=== PATIENT | male | born 1970 | race Caucasian/White ===

== ENCOUNTER 2018-10-20 18:06 | Inpatient (IN) | payer OTHER ==
[2018-10-21 03:50] VITALS: BMI 32.2
--- NOTE | 2018-10-21 03:50 | HP ---
CIWA Score Nausea/Vomitin-Mild Nausea/No Vomiting Muscle Tremors: 4-Moderate,w/Arms Extend Anxiety: 3 Agitation: 3 Paroxysmal Sweats: 3 Orientation: 0-Oriented Tacttile Disturbances: 1-Very Mild Itch/Numbness Auditory Disturbances: 0-None Visual Disturbances: 0-None Headache: 3-Moderate CIWA-Ar Total Score: 18 - Admission Criteria OASAS Guidelines: Admission for Medically Managed Detox: Requires at least one of the followin. CIWA greater than 12 2. Seizures within the past 24 hours 3. Delirium tremens within the past 24 hours 4. Hallucinations within the past 24 hours 5. Acute intervention needed for co occurring medical disorder 6. Acute intervention needed for co occurring psychiatric disorder 7. Severe withdrawal that cannot be handled at a lower level of care (continued vomiting, continued diarrhea, abnormal vital signs) requiring intravenous medication and/or fluids 8. Admission ROS [facility] Chief Complaint: Alcohol withdrawal symptoms Allergies/Adverse Reactions: Allergies Allergy/AdvReac Type Severity Reaction Status Date / Time No Known Allergies Allergy Verified 10/21/18 03:50 History of Present Illness: 48 years old with a long history of alcohol dependence is seeking admission to detox. [place] previous [place] [facility] [place] has history of Hep. C, anxiety and depression. He denies suicidal ideation at this time. He is on Methadone 90mg tablet oral daily with HELP MMTP. Last dose medicated was 10/20/2018. Dose is yet to be verified by the nurse. Exam Limitations: No Limitations - Ebola screening Have you traveled outside of the country in the last 21 days: No (N) Have you had contact with anyone from an Ebola affected area: No Do you have a fever: No - Review of Systems Constitutional: Chills, Loss of Appetite, Night Sweats, Weakness EENT: reports: No Symptoms Reported, Sinus Pressure Respiratory: reports: No Symptoms reported Cardiac: reports: No Symptoms Reported GI: reports: Diarrhea (x 2), Poor Appetite, Poor Fluid Intake, Vomiting, Abdominal cramping : reports: No Symptoms Reported Musculoskeletal: reports: Back Pain, Muscle Pain Integumentary: reports: Dryness, Flushing Neuro: reports: Headache, Tremors Endocrine: reports: No Symptoms Reported Hematology: reports: No Symptoms Reported Psychiatric: reports: Mood/Affect Appropiate, Orientated x3 Other Systems: Reviewed and Negative Patient History - Patient Medical History Hx Anemia: No Hx Asthma: No Hx Chronic Obstructive Pulmonary Disease (COPD): No Hx Cancer: No Hx Cardiac Disorders: No Hx Congestive Heart Failure: No Hx Hypertension: No Hx Hypercholesterolemia: No Hx Pacemaker: No HX Cerebrovascular Accident: No Hx Seizures: No Hx Dementia: No Hx Diabetes: No Hx Liver Disease: Yes (HEP. C) Hx Genitourinary Disorders: No Hx Sexually Transmitted Disorders: No Hx Renal Disease (ESRD): No Hx Thyroid Disease: No Hx Human Immunodeficiency Virus (HIV): No Hx Hepatitis C: Yes (NOT ON MEDICATION) Hx Depression: Yes (XANAX) Hx Suicide Attempt: No (DENIES SUICIDAL IDEATION AT THIS TIME) Hx Bipolar Disorder: No Hx Schizophrenia: No - Patient Surgical History Past Surgical History: No - PPD History Previous Implant?: Yes Documented Results: Negative w/o proof Implanted On Prior [facility] Admission?: No PPD to be Administered?: Yes - Reproductive History Patient is a Female of Child Bearing Age (11 -55 yrs old): No (MALE) - Smoking Cessation Smoking history: Current every day smoker Have you smoked in the past 12 months: Yes Aproximately how many cigarettes per day: 10 Hx Chewing Tobacco Use: No Initiated information on smoking cessation: Yes 'Breaking Loose' booklet given: 10/20/18 - Substance & Tx. History Hx Alcohol Use: Yes Hx Substance Use: Yes Substance Use Type: Alcohol, Prescribed Hx Substance Use Treatment: Yes ([facility] [place] - Substances abused Alcohol Substance route: Oral Frequency: Daily Amount used: PINT OF [place]ODKA, 2 X 40 OZ. BEER Age of first use: 14 Date of last use: 10/20/18 Family Disease History - Family Disease History Family Disease History: Diabetes: Mother () Admission Physical Exam [facility] - Physical General Appearance: Yes: Moderate Distress, Tremorous, Sweating, Anxious HEENTM: Yes: Within Normal Limits Respiratory: Yes: Lungs Clear, Normal Breath Sounds, No Respiratory Distress Neck: Yes: Supple Breast: Yes: Breast Exam Deferred Cardiology: Yes: Regular Rhythm, Regular Rate Abdominal: Yes: Normal Bowel Sounds Genitourinary: Yes: Within Normal Limits Back: Yes: Normal Inspection Musculoskeletal: Yes: Back pain, Muscle Pain Extremities: Yes: Tremors Neurological: Yes: Respond to painful stimul Integumentary: Yes: Warm Lymphatic: Yes: Within Normal Limits - Diagnostic (1) Alcohol dependence with uncomplicated withdrawal Current Visit: Yes Status: Chronic (2) Nicotine dependence Current Visit: Yes Status: Chronic Qualifiers: Nicotine product type: cigarettes Substance use status: uncomplicated Qualified Code(s): F17.210 - Nicotine dependence, cigarettes, uncomplicated (3) Hep C w/o coma, chronic Current Visit: Yes Status: Chronic (4) Depression Current Visit: Yes Status: Chronic Qualifiers: Depression Type: unspecified Qualified Code(s): F32.9 - Major depressive disorder, single episode, unspecified (5) Anxiety Current Visit: Yes Status: Acute Cleared for Admission S - Detox or Rehab [facility] Level of Care: Medically Managed Detox Regimen/Protocol: Librium Breathalyzer - Breathalyzer Breathalyzer: 0 Vital Signs - Vital Signs Vital signs refused: No Temperature: 97.0 F Pulse Rate: 63 Respiratory Rate: 18 Blood Pressure: 105/62 BP Location: Left Arm - Height Height: 5 ft 8 in - Weight Weight: 212 lb Weight measurement method: Standing scale - BMI Body Mass Index (BMI): 32.2 - Bowel Function Bowel Movement: Yes Urine Drug Screen - Test Device Lot number: [id number] Expiration date: 07/02/20 - Control Is test valid?: Yes - Results Drug screen NEGATIVE: No Urine drug screen results: MOP-Opiates, MTD-Methadone Inpatient Rehab Admission - Rehab Decision to Admit Inpatient rehab admission?: No
[2018-10-21] MEDS ORDERED: ACETAMINOPHEN 325 MG TABLET (FP) PO PRN ×2 (04:23)
[2018-10-21] MEDS ORDERED: chlordiazePOXIDE HCL 25 MG CAPSULE PO PRN (04:23)
[2018-10-21] MEDS ORDERED: MELATONIN 5 MG TABLETS PO PRN ×2 (04:23→11:23)
[2018-10-21] MEDS ORDERED: MAGNESIUM CITRATE 300 ML BOTTLE PO PRN (04:23)
[2018-10-21] MEDS ORDERED: BISMUTH SUBSALICYLATE 524 MG/30 ML UD PO PRN (04:23)
[2018-10-21] MEDS ORDERED: IBUPROFEN 400 MG TABLET (FP) PO PRN (04:23)
[2018-10-21] MEDS ORDERED: MAG HYDROX/AL HYDROX/SIMETH 30 ML UNIT-DOSE CUP PO PRN (04:23)
[2018-10-21] MEDS ORDERED: MENTHOL/PHENOL 1 EACH UD MM PRN (04:23)
[2018-10-21] MEDS ORDERED: METHOCARBAMOL 500 MG TABLET PO PRN (04:23)
[2018-10-21] MEDS ORDERED: hydrOXYzine PAMOATE 25 MG CAPSULE (FP) PO PRN (04:23)
[2018-10-21] MEDS ORDERED: MAGNESIUM HYDROX 2400MG/30ML ORAL SUSPENSION 30 ML CUP PO PRN (04:23)
[2018-10-21] MEDS: chlordiazePOXIDE HCL 25 MG CAPSULE PO SCH ×4 (05:33→22:06)
[2018-10-21] MEDS ORDERED: METHADONE HCL 10 MG TABLET PO ONE (08:51)
[2018-10-21] MEDS ORDERED: METHADONE 80 MG, METHADONE 10 MG PO ONE (09:00)
[2018-10-21] MEDS ORDERED: METHADONE HCL 10 MG TABLET ONE (09:35)
[2018-10-21] MEDS ORDERED: METHADONE HCL 40 MG DISPERSABLE TABLET ONE (09:35)
[2018-10-21] MEDS: PRENATAL VITAMINS W/ FOLIC ACID TABLET (FP) PO SCH (10:34)
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
--- NOTE | 2018-10-21 15:06 | PN ---
S CIWA - CIWA Score Nausea/Vomitin-Mild Nausea/No Vomiting Muscle Tremors: 2 Anxiety: 1-Mildly Anxious Agitation: 1-Slight > Activity Paroxysmal Sweats: 1-Minimal Palms Moist Orientation: 0-Oriented Tacttile Disturbances: 0-None Auditory Disturbances: 0-None Visual Disturbances: 0-None Headache: 1-Very Mild CIWA-Ar Total Score: 7 [facility] Progress Note (SOAP) Subjective: pt admitted early this morning for alcohol detox- doing well O: Vital Signs - 24 hr 10/21/18 10/21/18 10/21/18 06:35 08:06 11:24 Temperature 97.0 F L 97.5 F L 97.5 F L Pulse Rate 63 55 L 67 Respiratory 18 18 17 Rate Blood Pressure 105/62 114/67 105/57 L a/p: continue alcohol detox protocol- pt seems to be doing better
[2018-10-21] MEDS: THIAMINE HCL 100 MG TABLET (FP) PO SCH (22:06)
[2018-10-22] MEDS ORDERED: chlordiazePOXIDE HCL 25 MG CAPSULE PO SCH (05:00)
[2018-10-22] MEDS ORDERED: METHADONE HCL 40 MG DISPERSABLE TABLET ONE (05:38)
[2018-10-22] MEDS ORDERED: METHADONE HCL 10 MG TABLET ONE (05:38)
[2018-10-22] MEDS: METHADONE 80 MG, METHADONE 10 MG PO SCH (05:47)
[2018-10-22] MEDS ORDERED: METHADONE HCL 40 MG DISPERSABLE TABLET PO SCH (06:00)
--- NOTE | 2018-10-22 09:13 | PN ---
[facility] CIWA - CIWA Score Nausea/Vomitin Muscle Tremors: 2 Anxiety: 2 Agitation: 2 Paroxysmal Sweats: 1-Minimal Palms Moist Orientation: 0-Oriented Tacttile Disturbances: 1-Very Mild Itch/Numbness Auditory Disturbances: 1-Very Mild Visual Disturbances: 0-None Headache: 2-Mild CIWA-Ar Total Score: 13 [facility] Progress Note (SOAP) Subjective: alert,irritable,anxious,interrupted sleep,tremor,pain in the body Objective: 10/22/18 09:12 Vital Signs Temperature 97.9 F 10/22/18 07:18 Pulse Rate 61 10/22/18 07:18 Respiratory Rate 18 10/22/18 07:18 Blood Pressure 107/62 10/22/18 07:18 O2 Sat by Pulse Oximetry (%) labs pending Assessment: 10/22/18 09:12 withdrawal symptom Plan: patient would like regimen to change fro librium to valium
[2018-10-22 09:40] LABS: HEMATOCRIT 41.6 % (35.4-49); HEMOGLOBIN 14.1 GM/dL (11.7-16.9); MCH 29.9 pg (25.7-33.7); MCHC 33.9 g/dl (32.0-35.9); MEAN CELL VOLUME 88.2 fl (80-96); MEAN PLT VOLUME 8.8 fl (7.5-11.1); PLATELET COUNT 94 K/MM3 (134-434); RBC 4.72 M/mm3 (4.00-5.60); RDW 13.4 % (11.9-15.9); WHITE BLOOD COUNT 4.3 K/mm3 (4.0-10.0)
[2018-10-22] MEDS: PRENATAL VITAMINS W/ FOLIC ACID TABLET (FP) PO SCH (09:55)
[2018-10-22 09:56] LABS: ALBUMIN 3.1 g/dl (3.4-5.0); BILIRUBIN,TOTAL 0.4 mg/dL (0.2-1); BLOOD UREA NITROGEN 11.2 mg/dL (7-18); CALCIUM 8.3 mg/dL (8.5-10.1); CREATININE 0.6 mg/dL (0.55-1.3); POTASSIUM 4.2 mmol/L (3.5-5.1); TOT PROT 7.4 g/dl (6.4-8.2)
[2018-10-22] MEDS ORDERED: diazePAM 5 MG TABLET PO ONE (10:00)
[2018-10-22] MEDS: FLUOCINONIDE 0.05% TOP OINT (60 GM TUBE) TP SCH ×4 (10:59→22:21)
[2018-10-22] MEDS: diazePAM 5 MG TABLET PO SCH ×2 (15:00→22:20)
[2018-10-22] MEDS: THIAMINE HCL 100 MG TABLET (FP) PO SCH (22:19)
[2018-10-22] MEDS: diazePAM 5 MG TABLET PO PRN (22:19)
[2018-10-23] MEDS: diazePAM 5 MG TABLET PO PRN ×3 (02:44→19:01)
[2018-10-23] MEDS ORDERED: METHADONE HCL 10 MG TABLET ONE (04:14)
[2018-10-23] MEDS ORDERED: METHADONE HCL 40 MG DISPERSABLE TABLET ONE (04:14)
[2018-10-23] MEDS ORDERED: chlordiazePOXIDE HCL 10 MG CAPSULE PO SCH (05:00)
[2018-10-23] MEDS ORDERED: chlordiazePOXIDE HCL 10 MG CAPSULE PO PRN (05:00)
[2018-10-23] MEDS: METHADONE 80 MG, METHADONE 10 MG PO SCH (06:01)
[2018-10-23] MEDS: diazePAM 5 MG TABLET PO SCH ×3 (06:02→22:32)
--- NOTE | 2018-10-23 10:16 | PN ---
S CIWA - CIWA Score Nausea/Vomitin Muscle Tremors: 2 Anxiety: 2 Agitation: 2 Paroxysmal Sweats: No Perspiration Orientation: 0-Oriented Tacttile Disturbances: 1-Very Mild Itch/Numbness Auditory Disturbances: 0-None Visual Disturbances: 0-None Headache: 2-Mild CIWA-Ar Total Score: 11 S Progress Note (SOAP) Subjective: alert,irritable,anxious,interrupted sleep,pain in the right leg treated for cellulitis prior to coming for detox Objective: 10/23/18 10:12 Vital Signs Temperature 96.9 F L 10/23/18 10:04 Pulse Rate 78 10/23/18 10:04 Respiratory Rate 18 10/23/18 10:04 Blood Pressure 99/55 L 10/23/18 10:04 O2 Sat by Pulse Oximetry (%) 10/23/18 10:12 Laboratory Last Values WBC 4.3 K/mm3 (4.0-10.0) 10/22/18 07:30 RBC 4.72 M/mm3 (4.00-5.60) 10/22/18 07:30 Hgb 14.1 GM/dL (11.7-16.9) 10/22/18 07:30 Hct 41.6 % (35.4-49) 10/22/18 07:30 MCV 88.2 fl (80-96) 10/22/18 07:30 MCH 29.9 pg (25.7-33.7) 10/22/18 07:30 MCHC 33.9 g/dl (32.0-35.9) 10/22/18 07:30 RDW 13.4 % (11.9-15.9) 10/22/18 07:30 Plt Count 94 K/MM3 (134-434) L 10/22/18 07:30 MPV 8.8 fl (7.5-11.1) 10/22/18 07:30 Sodium 142 mmol/L (136-145) 10/22/18 07:30 Potassium 4.2 mmol/L (3.5-5.1) 10/22/18 07:30 Chloride 107 mmol/L (98-107) 10/22/18 07:30 Carbon Dioxide 29 mmol/L (21-32) 10/22/18 07:30 Anion Gap 5 MMOL/L (8-16) L 10/22/18 07:30 BUN 11.2 mg/dL (7-18) 10/22/18 07:30 Creatinine 0.6 mg/dL (0.55-1.3) 10/22/18 07:30 Est GFR (CKD-EPI)AfAm 139.75 10/22/18 07:30 Est GFR (CKD-EPI)NonAf 120.58 10/22/18 07:30 Random Glucose 81 mg/dL (74-106) 10/22/18 07:30 Calcium 8.3 mg/dL (8.5-10.1) L 10/22/18 07:30 Total Bilirubin 0.4 mg/dL (0.2-1) 10/22/18 07:30 AST 257 U/L (15-37) H 10/22/18 07:30 ALT 273 U/L (13-61) H 10/22/18 07:30 Alkaline Phosphatase 78 U/L (45-117) 10/22/18 07:30 Total Protein 7.4 g/dl (6.4-8.2) 10/22/18 07:30 Albumin 3.1 g/dl (3.4-5.0) L 10/22/18 07:30 RPR Titer Nonreactive (NONREACTIVE) 10/22/18 07:30 Assessment: 10/23/18 10:14 withdrawal symptom right leg slight redness resolving cellulitis of right leg Plan: continue detox,repeat alt,ast,inr in am for elevation of alt,ast,d/c tylenol, keflex 500 mgs po tid for 7days for resolving of cellulitis of right leg
[2018-10-23] MEDS: PRENATAL VITAMINS W/ FOLIC ACID TABLET (FP) PO SCH (10:23)
[2018-10-23] MEDS: FLUOCINONIDE 0.05% TOP OINT (60 GM TUBE) TP SCH ×4 (10:24→22:30)
[2018-10-23] MEDS: CEPHALEXIN MONOHYDRATE 500 MG CAPSULE (UD) PO SCH ×2 (13:01→22:29)
[2018-10-23] MEDS ORDERED: NICOTINE POLACRILEX 2 MG GUM BUC PRN (20:17)
[2018-10-23] MEDS: THIAMINE HCL 100 MG TABLET (FP) PO SCH (22:29)
[2018-10-24] MEDS: diazePAM 5 MG TABLET PO PRN ×4 (00:58→22:17)
[2018-10-24] MEDS ORDERED: chlordiazePOXIDE HCL 10 MG CAPSULE PO SCH (05:00)
[2018-10-24] MEDS ORDERED: diazePAM 5 MG TABLET PO ONE (06:00)
[2018-10-24] MEDS ORDERED: METHADONE HCL 10 MG TABLET ONE (06:16)
[2018-10-24] MEDS ORDERED: METHADONE HCL 40 MG DISPERSABLE TABLET ONE (06:16)
[2018-10-24] MEDS: CEPHALEXIN MONOHYDRATE 500 MG CAPSULE (UD) PO SCH ×3 (06:16→22:17)
[2018-10-24] MEDS: METHADONE 80 MG, METHADONE 10 MG PO SCH (06:18)
[2018-10-24] MEDS: PRENATAL VITAMINS W/ FOLIC ACID TABLET (FP) PO SCH (10:13)
[2018-10-24] MEDS: FLUOCINONIDE 0.05% TOP OINT (60 GM TUBE) TP SCH ×4 (10:13→22:19)
--- NOTE | 2018-10-24 10:27 | PN ---
[facility] Progress Note Note: PATIENT C/O NIGHT SWEATS, MILDLY ANXIOUS ABOUT D/C, AND BODY ACHES. Laboratory Tests 10/22/18 10/22/18 10/22/18 07:30 07:30 07:30 WBC 4.3 RBC 4.72 Hgb 14.1 Hct 41.6 MCV 88.2 MCH 29.9 MCHC 33.9 RDW 13.4 Plt Count 94 L MPV 8.8 Sodium 142 Potassium 4.2 Chloride 107 Carbon Dioxide 29 Anion Gap 5 L BUN 11.2 Creatinine 0.6 Est GFR (CKD-EPI)AfAm 139.75 Est GFR (CKD-EPI)NonAf 120.58 Random Glucose 81 Calcium 8.3 L Total Bilirubin 0.4 AST 257 H ALT 273 H Alkaline Phosphatase 78 Total Protein 7.4 Albumin 3.1 L RPR Titer Nonreactive PE: ALERT AND ORIENTED X 3 SKIN WARM AND DRY +PERRLA BL, EOMS INTACT BL EXT NO VISIBLE TREMORS, AMB AD PRATIK A/P; WITHDRAWAL SX ELEVATED LFTS CONTINUE DETOX ENCOURAGE FLUIDS LABS PENDING
[2018-10-24 10:48] LABS: SGOT/AST 274 U/L (15-37); SGPT/ALT 296 U/L (13-61)
[2018-10-24 11:24] LABS: INR 1.12 (0.83-1.09); PROTHROMBIN TIME (PATIENT) 13.2 SEC (9.7-13.0)
[2018-10-24] MEDS: THIAMINE HCL 100 MG TABLET (FP) PO SCH (22:15)
[2018-10-25] MEDS: diazePAM 5 MG TABLET PO PRN ×2 (03:34→08:41)
[2018-10-25] MEDS ORDERED: METHADONE HCL 10 MG TABLET ONE (05:27)
[2018-10-25] MEDS ORDERED: METHADONE HCL 40 MG DISPERSABLE TABLET ONE (05:28)
[2018-10-25] MEDS: METHADONE 80 MG, METHADONE 10 MG PO SCH (05:55)
[2018-10-25] MEDS: CEPHALEXIN MONOHYDRATE 500 MG CAPSULE (UD) PO SCH ×3 (05:55→22:25)
[2018-10-25] MEDS: PRENATAL VITAMINS W/ FOLIC ACID TABLET (FP) PO SCH (09:37)
[2018-10-25] MEDS: FLUOCINONIDE 0.05% TOP OINT (60 GM TUBE) TP SCH ×4 (09:37→22:26)
--- NOTE | 2018-10-25 12:27 | PN ---
[facility] CIWA - CIWA Score Nausea/Vomitin-No Nausea/No Vomiting Muscle Tremors: None Anxiety: 4-Mod. Anxious/Guarded Agitation: 4-Moderately Restless Paroxysmal Sweats: 2 Orientation: 0-Oriented Tacttile Disturbances: 0-None Auditory Disturbances: 0-None Visual Disturbances: 0-None Headache: 0-None Present CIWA-Ar Total Score: 10 S Progress Note (SOAP) Subjective: Anxious, restless, chills, goose bumps, feels lethargic. Patient was scheduled for greens picker to [facility] inpatient Rehab today but later changed his mind stating he has business to take care of at home before going to rehab. Patient requesting to be discharged Friday or Friday due to increased withdrawal symptoms. Patient called this ad copy writer a bitch after ad copy writer spoke with him regarding his refusal to go to [facility]. Patient got agitated after speaking with ad copy writer. Objective: 10/25/18 12:25 Last Vital Signs Temp Pulse Resp BP Pulse Ox 97.5 F L 71 18 130/63 10/25/18 09:36 10/25/18 09:36 10/25/18 09:36 10/25/18 09:36 Laboratory Tests 10/22/18 10/22/18 10/22/18 07:30 07:30 07:30 WBC 4.3 RBC 4.72 Hgb 14.1 Hct 41.6 MCV 88.2 MCH 29.9 MCHC 33.9 RDW 13.4 Plt Count 94 L MPV 8.8 PT with INR INR Sodium 142 Potassium 4.2 Chloride 107 Carbon Dioxide 29 Anion Gap 5 L BUN 11.2 Creatinine 0.6 Est GFR (CKD-EPI)AfAm 139.75 Est GFR (CKD-EPI)NonAf 120.58 Random Glucose 81 Calcium 8.3 L Total Bilirubin 0.4 AST 257 H ALT 273 H Alkaline Phosphatase 78 Total Protein 7.4 Albumin 3.1 L RPR Titer Nonreactive 10/24/18 10/24/18 10/24/18 08:00 08:00 08:00 WBC RBC Hgb Hct MCV MCH MCHC RDW Plt Count MPV PT with INR 13.20 H INR 1.12 H Sodium Potassium Chloride Carbon Dioxide Anion Gap BUN Creatinine Est GFR (CKD-EPI)AfAm Est GFR (CKD-EPI)NonAf Random Glucose Calcium Total Bilirubin AST 274 H ALT Cancelled 296 H Alkaline Phosphatase Total Protein Albumin RPR Titer Labs reviewed: AST/ALT elevated Assessment: 10/25/18 12:26 Withdrawal symptoms Noted with elevated LFTs Plan: Continue detox Encouraged PO water hydration Hold discharge until Friday or Friday due to increased withdrawal symptoms, encouraged inpatient rehab Elevated LFTs (AST/ALT): could be r/t chronic hepatitis C and chronic alcoholism. Follow up with PCP for management
[2018-10-25] MEDS: THIAMINE HCL 100 MG TABLET (FP) PO SCH (22:25)
[2018-10-26] MEDS ORDERED: METHADONE HCL 40 MG DISPERSABLE TABLET ONE (05:24)
[2018-10-26] MEDS ORDERED: METHADONE HCL 10 MG TABLET ONE (05:24)
[2018-10-26] MEDS: METHADONE 80 MG, METHADONE 10 MG PO SCH (05:48)
[2018-10-26] MEDS: CEPHALEXIN MONOHYDRATE 500 MG CAPSULE (UD) PO SCH ×2 (05:48→13:30)
[2018-10-26 06:32] VITALS: BP 135/75; PULSE 65; TEMP 97.2
--- NOTE | 2018-10-26 09:16 | DS ---
[facility] Detox Discharge Summary Admission Date: 10/21/18 Discharge Date: 10/26/18 - History Present History: Alcohol Dependence, Sedative Dependence - Physical Exam Results Vital Signs: Vital Signs Temperature 97.2 F L 10/26/18 06:00 Pulse Rate 65 10/26/18 06:00 Respiratory Rate 20 10/26/18 06:00 Blood Pressure 135/75 10/26/18 06:00 O2 Sat by Pulse Oximetry (%) - Treatment Hospital Course: Detox Protocol Followed, Detoxed Safely, Responded well, Discharged Condition Good, Rehab Referral Accepted - Diagnosis (1) Alcohol dependence with uncomplicated withdrawal Current Visit: Yes Status: Chronic (2) Anxiety Current Visit: Yes Status: Chronic (3) Sedative, hypnotic or anxiolytic dependence, uncomplicated Current Visit: Yes Status: Chronic (4) Substance induced mood disorder Current Visit: Yes Status: Acute (5) Substance-induced sleep disorder Current Visit: Yes Status: Acute (6) Depression Current Visit: Yes Status: Chronic Qualifiers: Depression Type: unspecified Qualified Code(s): F32.9 - Major depressive disorder, single episode, unspecified (7) Hepatitis C Current Visit: Yes Status: Chronic (8) Mood disorder Current Visit: Yes Status: Chronic (9) Nicotine dependence Current Visit: Yes Status: Chronic Qualifiers: Nicotine product type: cigarettes Substance use status: uncomplicated Qualified Code(s): F17.210 - Nicotine dependence, cigarettes, uncomplicated (10) Bipolar disorder Current Visit: Yes Status: Ruled-out - AMA Did Patient Leave Against Medical Advice: No (referred to [facility] or back to his [facility])
[2018-10-26] MEDS: PRENATAL VITAMINS W/ FOLIC ACID TABLET (FP) PO SCH (11:00)
[2018-10-26] MEDS: FLUOCINONIDE 0.05% TOP OINT (60 GM TUBE) TP SCH ×2 (11:02→13:30)
== END 2018-10-26 13:50 | disposition home or self-care (01) | DRG 773 ==
LOC: YASAS 18:06 → Y6N 10-21 03:53
PROVIDERS: ADMIT Surgery; ATTEND Surgery
PROC: HZ2ZZZZ Detoxification Services for Substance Abuse Treatment (ICD-10-PCS; principal; 2018-10-21)
DX: F10.230 Alcohol dependence with withdrawal, uncomplicated (principal); F11.20 Opioid dependence, uncomplicated; F13.230 Sedative, hypnotic or anxiolytic dependence with withdrawal, uncomplicated; F17.210 Nicotine dependence, cigarettes, uncomplicated; F41.9 Anxiety disorder, unspecified; F19.24 Other psychoactive substance dependence with psychoactive substance-induced mood disorder; F19.282 Other psychoactive substance dependence with psychoactive substance-induced sleep disorder; F31.9 Bipolar disorder, unspecified; F39 Unspecified mood [affective] disorder; B18.2 Chronic viral hepatitis C; R94.5 Abnormal results of liver function studies; L03.115 Cellulitis of right lower limb
CPT/HCPCS: 36415; 80053; 84450; 84460; 85027; 85610; 86593